=== PATIENT | male | born 1950 | race Caucasian/White ===

== ENCOUNTER → 2021-11-14 | Outpatient (CLI) | payer OTHER ==
[~2021-11-14] MED LIST: CHOL5000 PO; GABA300C18 PO; IBUP-1060 PO; TADA5TAB PO; TEST200V3 IM
--- NOTE | 2021-11-14 16:01 | PDOC1 ---
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 She reports no bowel or bladder control but does affect his ability to walk has had significant fatigability in the left lower extremity as well patient has been doing physical therapy as well as chiropractic treatment and exercise on his own all of which do help but only by about 20 to 30% patient taking gabapentin as well as ibuprofen both of which decrease the pain but only minimally patient rates disability rating 0-10 10 being the worst is a seven with family home responsibilities recreation social activity occupation to a sexual here five with self-care and six with life support activities specially sleeping. Patient did have MRI scan lumbar spine showing some significant degenerative changes and narrowing at the L3-4 L4-5 and L5S1 with small protrusion of the L5-S1 as well degenerative changes at the lumbar levels as noted. Patient reports no loss of motor function is significant fatigability in the left lower extremity always not use any assistive devices to ambulate and walking is becoming more difficult walking more than 10 to 15 min at a time. PAST MEDICAL HISTORY: PMH: Arthritis, COPD, hearing loss, skin cancer PREVIOUS SURGERIES: Past Surgical Hx: Mastoid surgery, injury to hand with repair, hernia repair, deviated septal correction CURRENT MEDICATIONS: Current Meds: Active Scripts Medications Dose Route/Sig Max Daily Dose Days Date Category Dose Instructions Cialis (Tadalafil) 5 Mg Tablet 1 Tab PO DAILY 11/14/21 Reported Vitamin D3 (Vitamin D) 125 Mcg Capsule Unknown Dose PO DAILY 11/14/21 Reported 5,000 UNITS = 125 MCG Testosterone Cypionate 200 Mg/1 Ml Vial 100 Mg IM BIWEEKLY 11/14/21 Reported Ibuprofen 800 Mg Tablet 800 Mg PO TID PRN 11/14/21 Reported Gabapentin (Gabapentin) 300 Mg Capsule 300 Mg PO BID 11/14/21 Reported ALLERGIES; Allergies: Coded Allergies: No Known Drug Allergies (Unverified , 11/14/21) FAMILY HISTORY: Family Hx: Diabetes SOCIAL HISTORY: Social Hx: Patient quit smoking about 3 years ago does not drink alcohol use any illegal illicit or recreational drugs is lives with his spouse lives locally in [facility] REVIEW OF SYSTEMS: ROS: Positive for those items mentioned in history of present illness, all systems are reviewed, otherwise negative ,and are complete full and well-documented on patient's chart. PHYSICAL EXAM: VS: Blood pressure is 178/108 pulse 84 respirations 18 temperature 98.1 F height is 66 in, weight is 176 lbs PE: PHYSICAL EXAMINATION: GENERAL: The patient is awake, alert, oriented, appropriate, very pleasant in demeanor HEENT: Shows normocephalic, atraumatic. Extraocular movements are intact and symmetrical. Oral cavity: Mucous membranes moist and pink. NECK: Shows anterior throat supple without palpable lymphadenopathy noted. Swallow reflex symmetrical. CHEST: Shows normal on inspection. Breath sounds are clear bilaterally, coarse and distant but no rales rhonchi or wheezes auscultated. HEART: Shows S1, S2 clear. No murmurs auscultated. ABDOMEN: Soft, nontender, nondistended. No palpable organomegaly is noted. BACK: Shows spine grossly in the midline. Normal-appearing cervical lordotic curvature. There is mildly increased thoracic kyphosis, some flattening of the lumbar lordotic curvature. Lumbar paraspinous muscles show symmetrical on inspection, on palpation shows some moderate tenderness diffusely throughout the upper, middle and lower distribution of the paraspinous muscles bilaterally and also into the lower thoracic paraspinous musculature, firm and tender, but without specific trigger points, without radiation of pain. The patient has good rotational motion of the lumbar spine, both laterally as well as extension and flexion without significant difficulty. No tenderness over the spinous processes, sacrum or sacroiliac regions. EXTREMITIES: Lower extremities show deep tendon reflexes two per in the patellar and tendo calcaneus tendons. Motor exam is five on a scale of 5 with right dorsiflexion, extension, quadriceps and hamstring flexion and four/5 on the left. Peripheral pulses are 1+ posterior tibial. No peripheral edema is noted bilaterally. Lower extremities are warm and dry to touch, equal in color and appearance. Straight leg raise noted to be positive on the left at approximate 45, relieved with knee flexion right side is negative. Gaenslen's and Valentin's maneuvers are negative bilaterally. The patient is able to stand, stand on his toes that significant difficulty loss of balance walks with a normal-appearing gait does not appear to favor the right or left lower extremity significantly is not use any assistive devices. SKIN: Shows warm and dry, good turgor. No edema. No sores, rashes or bruising throughout. IMPRESSION: Impression: 71-year-old male with long history low back and left lower extremity pain and radicular fashion MRI scan lumbar spine as noted Arthritis COPD Hearing loss Plan: Options were discussed the patient including serve medical management continued physical therapies interventional techniques. Patient would like to pursue most conservative course at this time and is requesting a inversion table we'll write him a order for inversion table he will [facility] We discussed also physical therapy with traction if unable to obtain an inversion table. Also discussed potential interventional techniques and patient will try the traction/inversion table first and if not significantly improved will revisit this in approximately 4 weeks or sooner as necessary. CLARISSE RIZVI MD Nov 14, 2021 16:01
== END | disposition home or self-care (01) ==
LOC: PNCL 14:04
PROVIDERS: ATTEND Anesthesiology
DX: M54.50 Low back pain, unspecified (principal); M79.605 Pain in left leg; M19.90 Unspecified osteoarthritis, unspecified site; J44.9 Chronic obstructive pulmonary disease, unspecified; Z85.828 Personal history of other malignant neoplasm of skin; Z79.899 Other long term (current) drug therapy; Z98.890 Other specified postprocedural states
CPT/HCPCS: G0463

== ENCOUNTER → 2021-11-19 | Outpatient (CLI) | payer OTHER ==
[~2021-11-19] MED LIST changes: +IOHEXOL 180 MG/ML 10 ML VIAL. ONE; +methylPREDNISolone ACETATE 40 MG/ML VIAL. ONE; +methylPREDNISolone ACETATE 80 MG/ML VIAL. ONE
--- NOTE | 2021-11-19 12:16 | PDOC4 ---
Procedure Note: ICD 10 Code: ICD 10 Code: M54.16 M51.36 Procedure Note: Patient was consented for lumbar epidural steroid injection with fluoroscopic guidance. Risks were discussed including but not limited to: Bleeding, infection, possibility of epidural hematoma and subsequent neurological compromise, dural puncture, headaches, spinal cord and/or nerve damage, side effects of steroid medication, and poor results regarding pain control. Patient understands and wished to proceed. Procedure is lumbar epidural steroid injection under local anesthetic using sterile prep and drape at the L4-5 level using C-arm fluoroscopic guidance in both AP and lateral views medications injected is 120 mg Depo-Medrol +10mL preservative-free normal saline and 2 mL contrast- condition at discharge is stable patient tolerated procedure well had no complications. CLARISSE RIZVI MD Nov 19, 2021 12:16
--- NOTE | 2021-11-19 12:16 | PDOC ---
Progress Note - Pain Clinic Date of Service: DOS: DATE: 11/19/21 TIME: 12:11 Diagnosis: Dx: Lumbar radiculopathy with lumbar degenerative disc disease History or Present Illness: HPI: 71-year-old male with complaints of pain low back and left lower extremity radiating the posterior gluteus posterior lateral thigh lateral anterior thigh anteromedial thigh medial lower leg worse with walking standing change positions is with 9 on scale 10 is worse over the past week 7 on average 4 to sleep and is a 4 today patient reported sharp burning radiating can be severe worse with standing walking better with sitting or laying down has been waking her from sleep however frequently through the night patient reports no loss of motor function with significant fatigability the left lower extremity compared to the right with walking and standing. Patient had a chance to discuss options with his daughter and would like to proceed with interventional treatment. Patient reports no new motor or sensory deficits no bowel or bladder incontinence. Patient with consistently elevated blood pressure with diastolics in [id number] range on repeat measurements, discussed the importance of following up with this with his primary care physician and that pain may increase his pressure but with consistent readings of diastolic above 100 needs to be evaluated with his primary physician. Patient voices understanding. Physical Exam: VS: Blood pressure is 150/106 pulse 77 respirations 16 temperature is 97.8 F height is 66 inches weight is 175 pounds PE: PHYSICAL EXAMINATION: GENERAL: The patient is awake, alert, oriented, appropriate, very pleasant in demeanor HEENT: Shows normocephalic, atraumatic. Extraocular movements are intact and symmetrical. Patient wearing eyeglasses. Oral cavity: Mucous membranes moist and pink. NECK: Shows anterior throat supple without palpable lymphadenopathy noted. Swallow reflex symmetrical. CHEST: Shows normal on inspection. Breath sounds are clear bilaterally. HEART: Shows S1, S2 clear. No murmurs auscultated. ABDOMEN: Soft, nontender, nondistended. No palpable organomegaly is noted. BACK: Shows spine grossly in the midline. Normal-appearing cervical lordotic curvature. There is increased thoracic kyphosis, some flattening of the lumbar lordotic curvature. Lumbar paraspinous muscles show symmetrical on inspection, on palpation shows some moderate tenderness diffusely throughout the upper, middle and lower distribution of the paraspinous muscles, but without specific trigger points, without radiation of pain. The patient has good rotational motion of the lumbar spine, both laterally as well as extension and flexion without significant difficulty. EXTREMITIES: Lower extremities show deep tendon reflexes 2+ in the patellar and tendo calcaneus tendons. Motor exam is 5 on a scale of 5 with right dorsiflexion, extension, quadriceps and hamstring flexion and 4/5 on the left. Peripheral pulses are 1+ posterior tibial. No peripheral edema is noted bilaterally. Lower extremities are warm and dry. SKIN: Shows warm and dry, good turgor. No edema. No sores, rashes or bruising throughout. Procedure: Procedure: Options were discussed with patient. Patient chart was reviewed as his current medication regimen updated current review of systems updated today as well. We will proceed with a lumbar epidural steroid injection today with fluoroscopic guidance. Risks were discussed including but not limited to: Bleeding, infection, possibility of epidural hematoma and subsequent neurological compromise, dural puncture, headaches, spinal cord and/or nerve damage, side effects of steroid medication, and poor results regarding pain control. Patient understands and wished to proceed. Patient will return to clinic in approximately 2 weeks for follow-up, was counseled as to return appointment, activity level, and side effect to be aware of. Medication Injected: Med Injected: Procedure is lumbar epidural steroid injection under local anesthetic using sterile prep and drape at the L4-5 level using C-arm fluoroscopic guidance in both AP and lateral views medications injected is 120 mg Depo-Medrol +10mL preservative-free normal saline and 2 mL contrast- condition at discharge is stable patient tolerated procedure well had no complications. Condition at Discharge: Condition at Discharge: Condition at discharge stable, patient tolerated procedure well had no complications. Once again, patient will follow up with his primary care physician regarding hypertension, elevated on measurement today and previous visit. CLARISSE RIZVI MD Nov 19, 2021 12:16
== END | disposition home or self-care (01) ==
LOC: PNCL 12:09
PROVIDERS: ATTEND Anesthesiology
DX: M51.16 Intervertebral disc disorders with radiculopathy, lumbar region (principal); Z79.899 Other long term (current) drug therapy
CPT/HCPCS: 62323; J1030; J1040; Q9965

== ENCOUNTER → 2021-12-03 | Outpatient (CLI) | payer OTHER ==
[~2021-12-03] MED LIST changes: -methylPREDNISolone ACETATE 40 MG/ML VIAL. ONE
--- NOTE | 2021-12-03 08:26 | PDOC ---
Progress Note - Pain Clinic Date of Service: DOS: DATE: 12/03/21 TIME: 08:21 Diagnosis: Dx: Lumbar radiculopathy with lumbar degenerative disc disease History or Present Illness: HPI: 71-year-old male returns for follow-up status post lumbar epidural steroid injection x1. Patient reports about 60% improvement in the back and left leg patient reports still some pain in the left leg and now has a new pain in the groin radiating medially especially when getting up from a seated position and with standing for prolonged periods patient reports the back and leg is doing much better but still significant pain radiating in the posterior gluteus lateral thigh anterior thigh medial thigh medial lower leg but the leg is doing not quite as good as the back patient reports is a 7 on scale 10 is worse over the past week 5 on average 3 to [place]asman 5 today patient scribes as sharp and tingling Burning radiating the left lower extremity patient reports increasing activity however better distance walking doing household activities travel with greater ease and comfort sleeping better at night as well though it still wakes him from sleep about once a night patient reports no bowel or bladder incontinence again new pain radiating into the left groin on the left side only when getting up from seated positions most noticeably. Will order hip x-rays right and left to better differentiate etiology of left hip and groin pain later today. Physical Exam: VS: Blood pressure is 151/80 pulse 80 respirations are 18 temperature 97.9 F weight is 178 pounds PE: PHYSICAL EXAMINATION: GENERAL: The patient is awake, alert, oriented, appropriate, very pleasant in demeanor HEENT: Shows normocephalic, atraumatic. Extraocular movements are intact and symmetrical. Patient wearing eyeglasses. Oral cavity: Mucous membranes moist and pink. Dentition is intact. NECK: Shows anterior throat supple without palpable lymphadenopathy noted. Swallow reflex symmetrical. CHEST: Shows normal on inspection. Breath sounds are clear bilaterally. HEART: Shows S1, S2 clear. No murmurs auscultated. ABDOMEN: Soft, nontender, nondistended. No palpable organomegaly is noted. BACK: Shows spine grossly in the midline. Normal-appearing cervical lordotic curvature. There is mildly increased thoracic kyphosis, some flattening of the lumbar lordotic curvature. Lumbar paraspinous muscles show symmetrical on inspection, on palpation shows some moderate tenderness diffusely throughout the upper, middle and lower distribution of the paraspinous muscles, but without specific trigger points, without radiation of pain. The patient has good rotational motion of the lumbar spine, both laterally as well as extension and flexion without significant difficulty. EXTREMITIES: Lower extremities show deep tendon reflexes 2+ in the patellar and tendo calcaneus tendons. Motor exam is 5 on a scale of 5 with right dorsiflex ion, extension, quadriceps and hamstring flexion and 4/5 on the left. Peripheral pulses are 1+ posterior tibial. No peripheral edema is noted bilaterally. Lower extremities are warm and dry. SKIN: Shows warm and dry, good turgor. No edema. No sores, rashes or bruising throughout. Procedure: Procedure: Options were discussed with the patient. Patient's chart reviews his current medication regimen updated current review of systems updated today as well. We will proceed with a lumbar epidural steroid injection today with fluoroscopic guidance. Risks were discussed including but not limited to: Bleeding, infection, possibility of epidural hematoma and subsequent neurological compromise, dural puncture, headaches, spinal cord and/or nerve damage, side effects of steroid medication, and poor results regarding pain control. Patient understands and wished to proceed. Patient will return to the clinic in approximate 2 weeks for follow-up, was counseled as to return appointment, activity level, and side effects to be aware of. Medication Injected: Med Injected: Procedure is lumbar epidural steroid injection under local anesthetic using sterile prep and drape at the L4-5 level using C-arm fluoroscopic guidance in both AP and lateral views medications injected is 120 mg Depo-Medrol +10mL preservative-free normal saline and 2 mL contrast- condition at discharge is stable patient tolerated procedure well had no complications. Hip x-rays left MRI will be ordered today as well with results pending. Condition at Discharge: Condition at Discharge: Condition at discharge stable, patient tolerated the procedure well and had no complications. Will review patient's left hip films once they are available later today. CLARISSE RIZVI MD Dec 03, 2021 08:26
--- NOTE | 2021-12-03 08:27 | PDOC4 ---
Procedure Note: ICD 10 Code: ICD 10 Code: M54.16 M51.36 Procedure Note: Patient was consented for lumbar epidural steroid injection with fluoroscopic guidance. Risks were discussed including but not limited to: Bleeding, infection, possibility of epidural hematoma and subsequent neurological compromise, dural puncture, headaches, spinal cord and/or nerve damage, side effects of steroid medication, and poor results regarding pain control. Patient understands and wished to proceed. Procedure is lumbar epidural steroid injection under local anesthetic using sterile prep and drape at the L4-5 level using C-arm fluoroscopic guidance in both AP and lateral views medications injected is 120 mg Depo-Medrol +10mL preservative-free normal saline and 2 mL contrast- condition at discharge is stable patient tolerated procedure well had no complications. CLARISSE RIZVI MD Dec 03, 2021 08:27
--- NOTE | 2021-12-03 09:51 | RAD ---
XR HIP (WITH OR WITHOUT PELVIS) 1 VIEW History: Bilateral hip pain Comparison: None. Technique: AP pelvis and cone-down frog-leg lateral views of the right hip and left hip. Findings: Osseous mineralization is normal. No acute fracture or dislocaton. Mild right greater than left femor al acetabular narrowing and minimal degenerative changes of the lateral acetabulum. There is a left f emoral metaphysis benign-appearing eccentric proximal calcification, likely enchondroma. Bilateral va sectomy clips. Impression: 1. Mild greater than left hip degenerative changes. No acute osseous abnormality. Electronically signed by: Sanchez Jensen MD (12/03/2021 9:49 AM) [id number]
== END | disposition home or self-care (01) ==
LOC: PNCL 07:41
PROVIDERS: ATTEND Anesthesiology
DX: M51.16 Intervertebral disc disorders with radiculopathy, lumbar region (principal); M16.0 Bilateral primary osteoarthritis of hip; Z79.899 Other long term (current) drug therapy
CPT/HCPCS: 62323; 73521; J1040; Q9965